=== PATIENT | female | born 1975 | race Caucasian/White ===

== ENCOUNTER 2024-07-24 20:32 | Observation (INO) | payer OTHER ==
--- NOTE | 2024-07-24 21:01 | ED ---
Weakness HPI - General Chief complaint: Weakness Stated complaint: high blood pressure, weakness Time Seen by Provider: 07/24/24 20:38 Source: EMS, RN notes reviewed, old records reviewed Mode of arrival: EMS Limitations: no limitations - History of Present Illness Initial comments: This is a 49-year-old female to the ER today. This patient presents today for evaluation regards to altered mental status confusion hypertension possible low blood pressure dizziness, patient is coming from [place] for alcohol withdrawal MD Complaint: generalized weakness, lack of energy -: hour(s) Severity: moderate Severity scale (1-10): 6 Consistency: constant Improves with: none, evening Context: history of similar Associated Symptoms: confusion - Related Data Allergies Allergy/AdvReac Type Severity Reaction Status Date / Time No Known Allergies Allergy Verified 07/24/24 20:55 Review of Systems ROS Statement: Those systems with pertinent positive or pertinent negative responses have been documented in the HPI. ROS Other: All systems not noted in ROS Statement are negative. General Exam General appearance: alert, in no apparent distress Head exam: Present: atraumatic, normocephalic, normal inspection Eye exam: Present: normal appearance, PERRL, EOMI. Absent: scleral icterus, conjunctival injection, periorbital swelling ENT exam: Present: normal exam, mucous membranes moist Neck exam: Present: normal inspection. Absent: tenderness, meningismus, lymphadenopathy Respiratory exam: Present: normal lung sounds bilaterally. Absent: respiratory distress, wheezes, rales, rhonchi, stridor Cardiovascular Exam: Present: regular rate, normal rhythm, normal heart sounds. Absent: systolic murmur, diastolic murmur, rubs, gallop, clicks GI/Abdominal exam: Present: soft, normal bowel sounds. Absent: distended, tenderness, guarding, rebound, rigid Extremities exam: Present: normal inspection, full ROM, normal capillary refill. Absent: tenderness, pedal edema, joint swelling, calf tenderness Back exam: Present: normal inspection Neurological exam: Present: alert, oriented X3, CN II-XII intact Psychiatric exam: Present: normal affect, normal mood Skin exam: Present: warm, dry, intact, normal color. Absent: rash Course Vital Signs 07/24/24 07/24/24 07/24/24 20:33 21:14 21:55 Temperature 98.0 F Pulse Rate 70 66 70 Respiratory 16 16 Rate Blood Pressure 91/57 78/67 105/60 O2 Sat by Pulse 97 97 96 Oximetry - Reevaluation(s) Reevaluation #1: 07/24/24 21:37 Medical records reviewed Reevaluation #2: 07/24/24 23:24 Patient's blood pressure remains labile but is improving Reevaluation #3: 07/24/24 23:24 Patient informed of results questions answered Reevaluation #4: Was pt. sent in by a medical professional or institution ([facility], [facility], urgent care, hospital, or fci...) When possible be specific @ -no Did you speak to anyone other than the patient for history (EMS, parent, family, police, friend...)? What history was obtained from this source @ -no Did you review nursing and triage notes (agree or disagree)? Why? @ -agree Are old charts reviewed (outside hosp., previous admission, EMS record, old EKG, old radiological studies, urgent care reports/EKG's, fci records)? Report findings @ -yes Differential Diagnosis (chest pain, altered mental status, abdominal pain women, abdominal pain men, vaginal bleeding, weakness, fever, dyspnea, syncope, headache, dizziness, GI bleed, back pain, seizure, CVA, palpatations, mental health, musculoskeletal)? @ -prior EKG interpreted by me (3pts min.). @ -yes X-rays interpreted by me (1pt min.). @ -yes negative for acute disease CT interpreted by me (1pt min.). @ -no U/S interpreted by me (1pt. min.). @ -no What testing was considered but not performed or refused? (CT, X-rays, U/S, labs)? Why? @ -none What meds were considered but not given or refused? Why? @ -none Did you discuss the management of the patient with other professionals (professionals i.e. [facility], [facility], lab, RT, psych nurse, oncology social worker, home extension agent, teacher, structural engineering drafting officer, case coordinator)? Give summary @ -no Was smoking cessation discussed for >3mins.? @ -no Was critical care preformed (if so, how long)? @ -no Were there social determinants of health that impacted care today? How? (Homelessness, low income, unemployed, alcoholism, drug addiction, transportation, low edu. Level, literacy, decrease access to med. care, fdc, rehab)? @ -none Was there de-escalation of care discussed even if they declined (Discuss DNR or withdrawal of care, Hospice)? DNR status @ -no What co-morbidities impacted this encounter? (DM, HTN, Smoking, COPD, CAD, Cancer, CVA, ARF, Chemo, Hep., AIDS, mental health diagnosis, sleep apnea, morbid obesity)? @ -none Was patient admitted / discharged? Hospital course, mention meds given and route, prescriptions, significant lab abnormalities, going to OR and other pertinent info. @ - Undiagnosed new problem with uncertain prognosis? @ -no Drug Therapy requiring intensive monitoring for toxicity (Heparin, Nitro, Insulin, Cardizem)? @ -no Were any procedures done? @ -no Diagnosis/symptom? @ - Acute, or Chronic, or Acute on Chronic? @ -Acute Uncomplicated (without systemic symptoms) or Complicated (systemic symptoms)? @ -Complicated Side effects of treatment? @ -no Exacerbation, Progression, or Severe Exacerbation? @ -exacerbation Poses a threat to life or bodily function? How? (Chest pain, USA, MD, pneumonia, PE, COPD, DKA, ARF, appy, cholecystitis, CVA, Diverticulitis, Homicidal, Suicidal, threat to staff... and all critical care pts) @ -yes Reevaluation #5: Differential Weakness: Hypoglycemia, shock, sepsis, hyponatremia, anemia, infection, MD, ETOH, adverse medicine reaction, overdose, stroke, this is not meant to be an all-inclusive list. - Consultations Consultation #1: Spoke with camille who agrees to admit this patient EKG Findings - EKG Comments: EKG Findings:: EKG is sinus 69 ND 139 QRS 90 QTc 464 - EKG Results: EKG: interpreted by ERMD Medical Decision Making - Medical Decision Making 49 female will be admitted for dehydration alcohol withdrawal symptoms with low blood pressure, patient given adequate resuscitation here in the ER symptoms improving - Lab Data Result diagrams: 07/24/24 21:14 07/24/24 21:14 Lab Results 07/24/24 07/24/24 07/24/24 Range/Units 21:14 21:14 21:14 WBC 8.06 (4.50-10.00) 10*3/uL RBC 4.36 (4.10-5.20) 10*6/uL Hgb 12.8 (12.0-15.0) g/dL Hct 38.1 (37.2-46.3) % MCV 87.4 (80.0-97.0) fL MCH 29.4 (27.0-32.0) pg MCHC 33.6 (32.0-37.0) g/dL Plt Count 128 L (140-440) 10*3/uL MPV 11.0 (9.5-12.2) fL Immature Gran % (Auto) 0.2 % Neutrophils % 36.2 % Lymphocytes % 41.9 % Monocytes % 7.9 % Eosinophils % 13.2 % Basophils % 0.6 % Immature Gran # 0.02 (0.00-0.04) 10*3/uL Neutrophils # 2.91 (1.80-7.70) 10*3/uL Lymphocytes # 3.38 (0.90-5.00) 10*3/uL Monocytes # 0.64 (0.20-1.00) 10*3/uL Eosinophils # 1.06 H (0.04-0.35) 10*3/uL Basophils # 0.05 (0.00-0.10) 10*3/uL Immature Plt Fraction 4.0 (1.1-6.1) % PT 12.4 (10.0-12.5) sec INR 1.2 H (<1.2) APTT 22.8 (22.0-30.0) sec Sodium 135 L (137-145) mmol/L Potassium 3.7 (3.5-5.1) mmol/L Chloride 102 (98-107) mmol/L Carbon Dioxide 20 L (22-30) mmol/L Anion Gap 13 mmol/L BUN 22 H (7-17) mg/dL Creatinine 1.16 H (0.52-1.04) mg/dL Est GFR (CKD-EPI)AfAm 65 (>60 ml/min/1.73 sqM) Est GFR (CKD-EPI)NonAf 56 (>60 ml/min/1.73 sqM) Glucose 95 (74-99) mg/dL Plasma Lactic Acid Chapin (0.7-2.0) mmol/L Calcium 9.5 (8.4-10.2) mg/dL Phosphorus 6.1 H (2.5-4.5) mg/dL Magnesium 1.7 (1.6-2.3) mg/dL Total Bilirubin 1.0 (0.2-1.3) mg/dL AST 28 (14-36) U/L ALT 11 (4-34) U/L Alkaline Phosphatase 133 H (38-126) U/L Ammonia (<30) umol/L Troponin I (0.000-0.034) ng/mL NT-Pro-B Natriuret Pep 233 pg/mL Total Protein 7.4 (6.3-8.2) g/dL Albumin 3.6 (3.5-5.0) g/dL Urine Color Urine Appearance (Clear) Urine pH (5.0-8.0) Ur Specific Elton (1.001-1.035) Urine Protein (Negative) Urine Glucose (UA) (Negative) Urine Ketones (Negative) Urine Blood (Negative) Urine Nitrite (Negative) Urine Bilirubin (Negative) Urine Urobilinogen (<2.0) mg/dL Ur Leukocyte Esterase (Negative) Serum Alcohol <10 mg/dL 07/24/24 07/24/24 07/24/24 Range/Units 21:14 21:14 21:14 WBC (4.50-10.00) 10*3/uL RBC (4.10-5.20) 10*6/uL Hgb (12.0-15.0) g/dL Hct (37.2-46.3) % MCV (80.0-97.0) fL MCH (27.0-32.0) pg MCHC (32.0-37.0) g/dL Plt Count (140-440) 10*3/uL MPV (9.5-12.2) fL Immature Gran % (Auto) % Neutrophils % % Lymphocytes % % Monocytes % % Eosinophils % % Basophils % % Immature Gran # (0.00-0.04) 10*3/uL Neutrophils # (1.80-7.70) 10*3/uL Lymphocytes # (0.90-5.00) 10*3/uL Monocytes # (0.20-1.00) 10*3/uL Eosinophils # (0.04-0.35) 10*3/uL Basophils # (0.00-0.10) 10*3/uL Immature Plt Fraction (1.1-6.1) % PT (10.0-12.5) sec INR (<1.2) APTT (22.0-30.0) sec Sodium (137-145) mmol/L Potassium (3.5-5.1) mmol/L Chloride (98-107) mmol/L Carbon Dioxide (22-30) mmol/L Anion Gap mmol/L BUN (7-17) mg/dL Creatinine (0.52-1.04) mg/dL Est GFR (CKD-EPI)AfAm (>60 ml/min/1.73 sqM) Est GFR (CKD-EPI)NonAf (>60 ml/min/1.73 sqM) Glucose (74-99) mg/dL Plasma Lactic Acid Chapin 0.9 (0.7-2.0) mmol/L Calcium (8.4-10.2) mg/dL Phosphorus (2.5-4.5) mg/dL Magnesium (1.6-2.3) mg/dL Total Bilirubin (0.2-1.3) mg/dL AST (14-36) U/L ALT (4-34) U/L Alkaline Phosphatase (38-126) U/L Ammonia 32 H (<30) umol/L Troponin I <0.012 (0.000-0.034) ng/mL NT-Pro-B Natriuret Pep pg/mL Total Protein (6.3-8.2) g/dL Albumin (3.5-5.0) g/dL Urine Color Colorless Urine Appearance Clear (Clear) Urine pH 5.5 (5.0-8.0) Ur Specific Elton 1.005 (1.001-1.035) Urine Protein Negative (Negative) Urine Glucose (UA) Negative (Negative) Urine Ketones Negative (Negative) Urine Blood Negative (Negative) Urine Nitrite Negative (Negative) Urine Bilirubin Negative (Negative) Urine Urobilinogen <2.0 (<2.0) mg/dL Ur Leukocyte Esterase Negative (Negative) Serum Alcohol mg/dL Disposition Clinical Impression: Dehydration, Weakness, Delirium tremens Disposition: ADMITTED IP TO THIS HOSP Condition: Fair Is patient prescribed a controlled substance at d/c from ED?: No Referrals: Lea Gaytan MD [Primary Care Provider] - 1-2 days Time of Disposition: 23:30
[2024-07-24] MEDS: LORazepam 1 MG/0.5 ML VIAL IV STA (21:11)
[2024-07-24] MEDS: SODIUM CHLORIDE 0.9% 1,000 ML IV SCH (21:12)
[2024-07-24] MEDS: ONDANSETRON 4 MG/2 ML VIAL IVP STA (21:12)
[2024-07-24 21:38] LABS: Appearance,Urine Clear (Clear); Bilirubin,Urine Negative (Negative); Blood,Urine Negative (Negative); Color,Urine Colorless; Glucose,Urine (UA) Negative (Negative); Ketones,Urine Negative (Negative); Leukocyte Esterase,Urine Negative (Negative); Nitrite,Urine Negative (Negative); PH, Urine 5.5 (5.0-8.0); Protein,Urine Negative (Negative); Specific Gravity,Urine 1.005 (1.001-1.035); Urobilinogen,Urine <2.0 mg/dL (<2.0)
[2024-07-24 21:39] LABS: Basophils # (A) 0.05 10*3/uL (0.00-0.10); Basophils % (A) 0.6 %; Eosinophils # (A) 1.06 10*3/uL (0.04-0.35); Eosinophils % (A) 13.2 %; HCT 38.1 % (37.2-46.3); HGB 12.8 g/dL (12.0-15.0); Lymphocytes # (A) 3.38 10*3/uL (0.90-5.00); Lymphocytes % (A) 41.9 %; MCH 29.4 pg (27.0-32.0); MCHC 33.6 g/dL (32.0-37.0); MCV 87.4 fL (80.0-97.0); Monocytes # (A) 0.64 10*3/uL (0.20-1.00); Monocytes % (A) 7.9 %; Neutrophils # (A) 2.91 10*3/uL (1.80-7.70); Neutrophils % (A) 36.2 %; Platelet Count 128 10*3/uL (140-440); RBC 4.36 10*6/uL (4.10-5.20); RDW 12.5 % (11.5-14.5); WBC 8.06 10*3/uL (4.50-10.00)
[2024-07-24 21:51] LABS: Lactic Acid, Venous 0.9 mmol/L (0.7-2.0)
[2024-07-24 21:53] LABS: ALT 11 U/L (4-34); AST 28 U/L (14-36); African American GFR (CKD) 65 (>60 ml/min/1.73 sqM); Albumin 3.6 g/dL (3.5-5.0); Alcohol <10 mg/dL; Alkaline Phosphatase 133 U/L (38-126); Anion Gap 13 mmol/L; Blood Urea Nitrogen 22 mg/dL (7-17); Calcium 9.5 mg/dL (8.4-10.2); Carbon Dioxide 20 mmol/L (22-30); Chloride 102 mmol/L (98-107); Glucose 95 mg/dL (74-99); INR 1.2 (<1.2); Magnesium 1.7 mg/dL (1.6-2.3); Non-African American GFR(CKD) 56 (>60 ml/min/1.73 sqM); Partial Thromboplastin Time 22.8 sec (22.0-30.0); Phosphorus 6.1 mg/dL (2.5-4.5); Potassium 3.7 mmol/L (3.5-5.1); Prothrombin Time 12.4 sec (10.0-12.5); Sodium 135 mmol/L (137-145); Total Protein 7.4 g/dL (6.3-8.2)
[2024-07-24 22:01] LABS: NT-Pro-B-Type Natriuretic Pept 233 pg/mL
[2024-07-24] MEDS ORDERED: LORazepam 0.5 MG TAB PO PRN (23:20)
[2024-07-24] MEDS ORDERED: NALOXONE 0.4 MG/ML 1 ML VIAL IV PRN (23:20)
[2024-07-24] MEDS ORDERED: LORazepam 1 MG TAB PO PRN ×2 (23:20)
[2024-07-24] MEDS ORDERED: ONDANSETRON 4 MG/2 ML VIAL IVP PRN (23:20)
[2024-07-24] MEDS ORDERED: LORazepam 1 MG/0.5 ML VIAL IV PRN ×3 (23:20)
[2024-07-24] MEDS: LACTATED RINGERS 1,000 ML IV ONE (23:51)
[2024-07-24] MEDS: LORazepam 1 MG TAB PO PRN (23:59)
[2024-07-25] MEDS: DEXTROSE 5%-0.45% NACL 1,000 ML IV SCH (03:33)
[2024-07-25 05:15] LABS: Basophils # (A) 0.04 10*3/uL (0.00-0.10); Basophils % (A) 0.7 %; Eosinophils # (A) 0.73 10*3/uL (0.04-0.35); HCT 37.1 % (37.2-46.3); HGB 12.1 g/dL (12.0-15.0); Lymphocytes # (A) 2.24 10*3/uL (0.90-5.00); Lymphocytes % (A) 36.7 %; MCH 29.9 pg (27.0-32.0); MCHC 32.6 g/dL (32.0-37.0); MCV 91.6 fL (80.0-97.0); Mean Platelet Volume 12.4 fL (9.5-12.2); Monocytes # (A) 0.59 10*3/uL (0.20-1.00); Monocytes % (A) 9.7 %; Neutrophils # (A) 2.49 10*3/uL (1.80-7.70); Neutrophils % (A) 40.7 %; Platelet Count 116 10*3/uL (140-440); RBC 4.05 10*6/uL (4.10-5.20); RDW 12.8 % (11.5-14.5)
[2024-07-25 05:35] LABS: ALT 9 U/L (4-34); AST 24 U/L (14-36); African American GFR (CKD) 82 (>60 ml/min/1.73 sqM); Albumin 2.9 g/dL (3.5-5.0); Alkaline Phosphatase 119 U/L (38-126); Anion Gap 12 mmol/L; Blood Urea Nitrogen 17 mg/dL (7-17); Calcium 9.2 mg/dL (8.4-10.2); Carbon Dioxide 18 mmol/L (22-30); Chloride 109 mmol/L (98-107); Glucose 116 mg/dL (74-99); Lipase 104 U/L (23-300); Magnesium 1.7 mg/dL (1.6-2.3); Non-African American GFR(CKD) 72 (>60 ml/min/1.73 sqM); Phosphorus 5.6 mg/dL (2.5-4.5); Potassium 3.8 mmol/L (3.5-5.1); Sodium 139 mmol/L (137-145); Total Bilirubin 0.5 mg/dL (0.2-1.3); Total Protein 6.3 g/dL (6.3-8.2)
[2024-07-25] MEDS ORDERED: BENZOCAINE/MENTHOL LOZENG 1 EACH LOZENGE MUCOUS MEM PRN (07:41)
--- NOTE | 2024-07-25 07:44 | P.HPIM ---
History of Present Illness H&P Date: 07/24/24 49-year-old female alcohol dependent, liver cirrhosis was transferred from [place] where she was residing for alcohol withdrawal and rehab. Today, she was found to be confused and altered with low blood pressure and dizziness, prompting transfer to our hospital for evaluation. at time of my evaluation , patient is back to her baseline, she seems to be alert awake and interactive , she does not recall what happened but reports sore throat and contact with sick residents at the facility , denies fever, cough , chest pain , nausea vomiting or trouble breathing she reports history of liver cirrhosis secondary to alcohol abuse denies any GI bleeding , falls or head injury review of systems Pertinent positives as noted in HPI. All other systems were reviewed and are negative on exam Constitutional: No acute distress, conversant, pleasant Eyes: Anicteric sclerae, moist conjunctiva, Pupils equal round reactive to light ENMT: NC/AT Oropharynx clear, no erythema, or exudates Neck: Supple, no masses, or JVD No carotid bruits No thyromegaly Lungs: Clear to auscultation Clear to percussion Normal respiratory effort, no accessory muscle use Cardiovascular: Heart regular in rate and rhythm, No murmurs, gallops, or rubs No peripheral edema Abdominal: Soft Nontender, no guarding, rebound or rigidity Abdomen moving with respiration Normoactive bowel sounds Extremities: No digital cyanosis No clubbing Pedal pulses intact and symmetrical Radial pulses intact and symmetrical No calf tenderness Psychiatric: Alert and oriented to person, place and time Appropriate affect Neuro Muscles Strength 5/5 in all 4 extremities Sensation to light touch grossly present throughout Cranial nerves II-XII grossly intact Past Medical History - Past Family History Mother Family Medical History: Hypertension Additional Family Medical History / Comment(s): etoh Father Family Medical History: No Reported History Medications and Allergies Allergies Allergy/AdvReac Type Severity Reaction Status Date / Time No Known Allergies Allergy Verified 07/24/24 20:55 Physical Exam Vitals: Vital Signs Temp Pulse Resp BP Pulse Ox 07/24/24 23:00 96/59 07/24/24 22:00 97/64 07/24/24 21:55 70 105/60 96 07/24/24 21:14 66 16 78/67 97 07/24/24 20:33 98.0 F 70 16 91/57 97 Intake and Output 07/24/24 07/24/24 07/25/24 14:59 22:59 06:59 Other: Weight 90.718 kg Results CBC & Chem 7: 07/25/24 04:27 07/25/24 04:27 Labs: Abnormal Lab Results - Last 24 Hours (Table) 07/24/24 07/24/24 07/24/24 Range/Units 21:14 21:14 21:14 Plt Count 128 L (140-440) 10*3/uL Eosinophils # 1.06 H (0.04-0.35) 10*3/uL INR 1.2 H (<1.2) Sodium 135 L (137-145) mmol/L Carbon Dioxide 20 L (22-30) mmol/L BUN 22 H (7-17) mg/dL Creatinine 1.16 H (0.52-1.04) mg/dL Phosphorus 6.1 H (2.5-4.5) mg/dL Alkaline Phosphatase 133 H (38-126) U/L Ammonia (<30) umol/L 07/24/24 Range/Units 21:14 Plt Count (140-440) 10*3/uL Eosinophils # (0.04-0.35) 10*3/uL INR (<1.2) Sodium (137-145) mmol/L Carbon Dioxide (22-30) mmol/L BUN (7-17) mg/dL Creatinine (0.52-1.04) mg/dL Phosphorus (2.5-4.5) mg/dL Alkaline Phosphatase (38-126) U/L Ammonia 32 H (<30) umol/L Assessment and Plan Assessment: 49 year old female sent in here from [facility] for altered mental status Acute metabolic encephalopathy, resolved blood work unremarkable White blood cell count: 8 (normal) Sodium: 135 mmol/L Potassium: 3.7 mmol/L BUN: 22 mg/dL Creatinine: 1.16 mg/dL Ammonia: 32 ?mol/L (slightly elevated) Phosphorus: 6 mg/dL (elevated) Hemoglobin: 12.8 g/dL Troponins: Negative Alcohol level: Negative Urinalysis: Unremarkable EKG: Sinus rhythm Temperature: Afebrile Likely due to alcohol withdrawal and possible Wernicke-Korsakoff syndrome supportive care Thiamine daily fall precautions now resolved and back to baseline no CT brain Done in ED alcoholic Liver cirhosis with mild Hyperammonemia patient back to her baseline mental status continue to monitor Elevated ammonia level of 32 ?mol/L lactulose 30 mg BID Hypotension, resolved Monitor blood pressure closely and provide IV fluids as needed IV fluid hydration with Electrolyte imbalance Elevated phosphorus of 6 mg/dL Monitor and correct electrolytes as needed sore throat check acute respiratory viral panel supportive care DVT prophylaxis lovenox 40 mg sc daily Code status full code plan Reassess mental status regularly Monitor for signs of alcohol withdrawal Repeat laboratory tests as needed consider Consult psychiatry for alcohol use disorder management once patient's mental status improves The patient's condition will be closely monitored, and the treatment plan will be adjusted as needed based on clinical response and test results.
[2024-07-25] MEDS: ENOXAPARIN 40 MG/0.4 ML SYRINGE SQ SCH (08:57)
[2024-07-25] MEDS: MULTIVITAMINS, THERA 1 EACH TAB PO SCH (08:57)
[2024-07-25] MEDS: FOLIC ACID 1 MG TAB PO SCH (08:57)
[2024-07-25] MEDS: LACTULOSE 20 GM/30 ML CUP PO SCH (08:57)
[2024-07-25 10:16] LABS: Influenza A Not Detected (Not Detectd); Influenza B Not Detected (Not Detectd); RSV Not Detected (Not Detectd)
[2024-07-25] MEDS: THIAMINE 500 MG in SODIUM CHLORIDE 0.9% 50 ML IVPB SCH (10:48)
[2024-07-25] MEDS: MAGNESIUM OXIDE 400 MG TAB PO STA (10:57)
[2024-07-25] MEDS: MAGNESIUM SULFATE-D5W PMX 1 GM in DEXTROSE/WATER 1 100ML.BAG IVPB ONE (10:58)
[2024-07-25] MEDS: THIAMINE 100 MG TAB PO SCH (10:59)
[2024-07-25] MEDS ORDERED: traZODone HCL 100 MG TAB PO PRN (12:38)
[2024-07-25] MEDS ORDERED: diphenhydrAMINE 25 MG CAP PO PRN (12:38)
[2024-07-25] MEDS ORDERED: ALBUTEROL NEBULIZED 2.5 MG/3 ML INHALATION PRN (12:38)
--- NOTE | 2024-07-25 13:23 | P.DS ---
Providers Date of admission: 07/24/24 23:20 Expected date of discharge: 07/25/24 Attending physician: Chelo Medrano MD Primary care physician: [facility] Course: Discharge Diagnosis: Alcohol withdrawal DTs Hypotension Metabolic encephalopathy, likely secondary to above. Resolved Alcoholic liver cirrhosis Hypomagnesemia Hospital Course: Patient is a 49-year-old female with a past medical history of daily alcohol abuse and alcoholic liver cirrhosis. She presented to our facility from [place] secondary to altered mental status. Patient reportedly to have confusion and complains of dizziness so she was transferred to our facility for evaluation. Upon arrival to our facility, patient's mentation improved and she was back to baseline. She underwent evaluation in the emergency department. Vital signs upon arrival show blood pressure 91/57, heart rate 70, respiratory rate 16, temp 98.0 F, and SpO2 of 97% on room air. EKG was completed showing sinus rhythm at 69 bpm with no noted T wave or ST abnormality showing no signs of acute ischemia upon personal review and interpretation. Labs were completed and reviewed. CBC showing thrombocytopenia with platelet count of 128. Coagulation profile showing elevated INR of 1.2. BMP showing high anion gap metabolic acidosis with chloride of 102, bicarb of 20 and anion gap of 13 and slightly elevated renal function with BUN of 22, creatinine 1.16, GFR 56. Blood glucose was 95. Magnesium slightly low at 1.7. Liver profile showing elevated alkaline phosphatase at 133 and elevated ammonia level of 32. Troponin was negative at less than 0.012. Urinalysis negative. Serum alcohol less than 10. Patient was admitted under our services for overnight monitoring. She did have further episodes of hypotension and was treated with IV fluid hydration. Hypotension fully resolved. Patient also treated with lactulose for elevated ammonia levels. Patient's mentation remains back at baseline and she is alert to person, place, time, and situation. Patient denies having any complaints. Patient medically optimized to return to [place] at this time. Vital signs at time of discharge show blood pressure 121/77, heart rate 80, respiratory rate 17, temp 98.0 F, and SpO2 of 91% on room air. Physical exam: Patient seen and examined at bedside. Vital signs reviewed and stable. General: Nontoxic, no distress and appears stated age. Derm: Skin warm and dry, normal coloration for ethnicity. Head: Atraumatic, normocephalic and symmetric. Eyes: EOM's intact, no lid lag, and anicteric sclera Mouth: no lip lesions, mucus membranes moist Cardiovascular: regular rate and rhythm with normal S1S2, no murmur, positive posterior tibial pulses bilaterally, and cap refill < 2 seconds. Lungs: Respirations even, regular, and unlabored on room air. Lungs CTA bilaterally, no rhonchi, no rales, no wheezing, and no accessory muscle usage. Abdominal: soft, nontender to palpation, no guarding, no appreciable organomegaly Ext: ROM intact. No gross muscle atrophy, no edema, no contractures Neuro: Speech clear, face symmetrical and CN II-XII grossly intact with no noted focal neuro deficits Psych: Alert and oriented to person, place, time, and situation. Appropriate and pleasant affect. A total of 31 minutes of time were spent preparing this complex discharge summary. Pt was discharged on 07/25/2024 at 1:22 PM Patient was seen independently by Nurse Practitioner. This document was prepared using [employer] dictation software. Please allow for errors in drywall stripper helper while rare they do occur. Jeison Leary NP rendered care for this patient independently, reviewed the findings and plan as documented in the note above. I did not physically speak with or examine the patient on this date. Patient Condition at Discharge: Stable Plan - Discharge Summary New Discharge Prescriptions: New Lactulose [Cephulac] 30 gm PO DAILY 30 Days #900 ml Continue Amitriptyline HCl [Elavil] 25 mg PO HS Benztropine Mesylate [Cogentin] 1 mg PO HS risperiDONE [RisperDAL] 0.5 mg PO HS traZODone HCL [Desyrel] 100 mg PO HS PRN PRN Reason: Insomnia Acetaminophen Tab [Tylenol] 650 mg PO Q4H PRN PRN Reason: Pain cloNIDine HCL [Catapres] 0.1 mg PO TID FLUoxetine HCL [PROzac] 10 mg PO DAILY Losartan [Cozaar] 50 mg PO DAILY Metoprolol Succinate (ER) [Toprol XL] 25 mg PO DAILY Thiamine [Vitamin B-1] 100 mg PO DAILY Mylanta 30 ml PO Q4H PRN PRN Reason: Gi Upset Chlorpheniramine Maleate [Chlor-Trimeton] 4 mg PO Q4H PRN PRN Reason: Allergy Symptoms Folic Acid 1 mg PO DAILY Melatonin 10 mg PO HS Nicotine 21Mg/24Hr Patch [Habitrol] 1 patch TRANSDERM DAILY ondansetron HCL [Zofran] 8 mg PO Q6H PRN PRN Reason: Nausea Buprenorphine HCl/Naloxone HCl [Suboxone 8 mg-2 mg Sl Film] 1 film SL DAILY Calcium Phos/D3/Magnesium/Zinc [Akeycsq-Tam-Qsmf-Vitamin D3] 1 tab PO TID Glecaprevir/Pibrentasvir [Mavyret 100-40 mg Tablet] 3 tab PO DAILY Multivitamins, Thera [Multivitamin (formulary)] 1 tab PO DAILY Pantoprazole Sodium [Protonix] 20 mg PO DAILY Pramipexole [Mirapex] 0.5 mg PO TID@0700,1200,2100 Albuterol Sulfate [Ventolin HFA] 2 puff INHALATION RT-QID PRN PRN Reason: Shortness Of Breath Discontinued Loperamide [Imodium] 2 mg PO QID PRN MDD 16mg PRN Reason: Diarrhea Discharge Medication List Acetaminophen Tab [Tylenol] 650 mg PO Q4H PRN 07/25/24 [History] Albuterol Sulfate [Ventolin HFA] 2 puff INHALATION RT-QID PRN 07/25/24 [History] Amitriptyline HCl [Elavil] 25 mg PO HS 07/25/24 [History] Benztropine Mesylate [Cogentin] 1 mg PO HS 07/25/24 [History] Buprenorphine HCl/Naloxone HCl [Suboxone 8 mg-2 mg Sl Film] 1 film SL DAILY 07/25/24 [History] Calcium Phos/D3/Magnesium/Zinc [Gevrtkq-Gij-Pmuh-Vitamin D3] 1 tab PO TID 07/25/24 [History] Chlorpheniramine Maleate [Chlor-Trimeton] 4 mg PO Q4H PRN 07/25/24 [History] FLUoxetine HCL [PROzac] 10 mg PO DAILY 07/25/24 [History] Folic Acid 1 mg PO DAILY 07/25/24 [History] Glecaprevir/Pibrentasvir [Mavyret 100-40 mg Tablet] 3 tab PO DAILY 07/25/24 [History] Lactulose [Cephulac] 30 gm PO DAILY 30 Days #900 ml 07/25/24 [Rx] Losartan [Cozaar] 50 mg PO DAILY 07/25/24 [History] Melatonin 10 mg PO HS 07/25/24 [History] Metoprolol Succinate (ER) [Toprol XL] 25 mg PO DAILY 07/25/24 [History] Multivitamins, Thera [Multivitamin (formulary)] 1 tab PO DAILY 07/25/24 [History] Mylanta 30 ml PO Q4H PRN 07/25/24 [History] Nicotine 21Mg/24Hr Patch [Habitrol] 1 patch TRANSDERM DAILY 07/25/24 [History] Pantoprazole Sodium [Protonix] 20 mg PO DAILY 07/25/24 [History] Pramipexole [Mirapex] 0.5 mg PO TID@0700,1200,2100 07/25/24 [History] Thiamine [Vitamin B-1] 100 mg PO DAILY 07/25/24 [History] cloNIDine HCL [Catapres] 0.1 mg PO TID 07/25/24 [History] ondansetron HCL [Zofran] 8 mg PO Q6H PRN 07/25/24 [History] risperiDONE [RisperDAL] 0.5 mg PO HS 07/25/24 [History] traZODone HCL [Desyrel] 100 mg PO HS PRN 07/25/24 [History] Follow up Appointment(s)/Referral(s): Lea Gaytan MD [Primary Care Provider] - 1-2 days Patient Instructions/Handouts: Medical Clearance for Substance Abuse Treatment (DC) Activity/Diet/Wound Care/Special Instructions: Patient is medically optimized for return to [place] Discharge/Stand Alone Forms: [facility] [place], [facility], Outpatient Counseling, In Substance Abuse Facilities Discharge Disposition: HOME SELF-CARE
[2024-07-25 13:49] VITALS: BP 121/77; PULSE 80; RESP 17; TEMP 98
[2024-07-25] MEDS: METOPROLOL SUCCINATE (ER) 25 MG TAB.ER.24H PO SCH (13:49)
[2024-07-25] MEDS: cloNIDine HCL 0.1 MG TAB PO SCH (14:26)
[2024-07-25] MEDS ORDERED: risperiDONE 0.5 MG TAB PO SCH (21:00)
[2024-07-25] MEDS ORDERED: BENZTROPINE MESYLATE 1 MG TAB PO SCH (21:00)
[2024-07-25] MEDS ORDERED: PRAMIPEXOLE 0.5 MG TAB PO SCH (21:00)
[2024-07-25] MEDS ORDERED: MELATONIN 5 MG TABLET PO SCH (21:00)
[2024-07-25] MEDS ORDERED: AMITRIPTYLINE HCL 25 MG TAB PO SCH (21:00)
[2024-07-26] MEDS ORDERED: GLECAPREVIR PO SCH (09:00)
[2024-07-26] MEDS ORDERED: PATIENT'S OWN (Buprenorphine Hcl/Naloxone Hcl [Suboxone 8 Mg-2 Mg Sl Film] 1 EACH Fil SUBLINGUAL SCH (09:00)
[2024-07-26] MEDS ORDERED: PIBRENTASVIR PO SCH (09:00)
[2024-07-26] MEDS ORDERED: LOSARTAN 50 MG TAB PO SCH (09:00)
== END 2024-07-25 14:25 | disposition home or self-care (01) ==
LOC: EC 20:32 → 6NMEDSUR 23:20
PROVIDERS: ADMIT Internal Medicine; ATTEND Internal Medicine
DX: F10.231 Alcohol dependence with withdrawal delirium (principal); G93.41 Metabolic encephalopathy; E86.0 Dehydration; E87.20 Acidosis, unspecified; I95.9 Hypotension, unspecified; K70.30 Alcoholic cirrhosis of liver without ascites; J02.9 Acute pharyngitis, unspecified; E83.42 Hypomagnesemia; D69.6 Thrombocytopenia, unspecified; R79.1 Abnormal coagulation profile
CPT/HCPCS: 96365; 96372; 96375; 99285; 36415; 94760; 93005; 83880; 80053 ×2; 82140; 83605; 83690; 83735 ×2; 84100 ×2; 84484; 85025 ×2; 85610; 85730; 81003; 87636; G0378 ×2; G0480; J2405; J1650; J3475; 80320